=== PATIENT | male | born 1945 | race Caucasian/White ===

== ENCOUNTER 2019-06-30 20:06 | Emergency (ER) | payer MEDICARE ==
[~2019-06-30] VITALS: Ht 172.7 cm; Wt 72.6 kg
--- NOTE | 2019-06-30 20:33 | ER.PDOC ---
General Chief Complaint: Requesting Medical Care Stated Complaint: WEAKNESS TRAVEL OUT OF US: No Time seen by MD: 20:33 Source: patient, family Exam Limitations: no limitations History of Present Illness Initial Comments 74 Y/O MALE PATIENT STATES THAT HE HAS OVERDONE IT THE LAST FEW DAYS, AND FEELS RUN DOWN. THINKS HIS BLOOD SUGAR MIGHT HAVE GOTTEN LOW, NOW FEELS FINE. NO CHEST PAIN, NO SOB, NO N/V/D, NO FEVER, NO ABD PAIN, NO CERVANTES, PATIENT HAS NO OTHER COMPLAINTS. STATES THAT HE HAD A NEAR SYNCOPE EPISODE X 2-3 WEEKS AGO WHILE DRIVING. PATIENT WAS NOT SEEN FOR THIS. PATIENT HAS NO COMPLAINTS NOW AND WANTS NO WORK UP. PATIENT LATER AGREED TO LABS AND ECG, REFUSED CT OF BRAIN. Timing/Duration: other Severity: mild Modifying Factors: improves with other Associated Symptoms: denies symptoms Past Medical History Medical History: cancer, coronary artery disease, cardiac problems, heart attack, hypertension Surgical History: cardiac cath, other Family History Significant Family History: no pertinent family hx Social History Smoking: non-smoker Alcohol Use: none Drug Use: none Reviewed Nursing Reviewed: Vital Signs, Abn. Noted, Nursing Assessment Review of Systems Constitutional: weakness EENTM: no symptoms reported Respiratory: no symptoms reported Cardiovascular: no symptoms reported Gastrointestinal: no symptoms reported Genitourinary: no symptoms reported Musculoskeletal: no symptoms reported Skin: no symptoms reported Psychiatric/Neurological: no symptoms reported Hematologic/Lymphatic: no symptoms reported Immunological/Allergic: no symptoms reported Physical Exam General Appearance: No Apparent Distress, WD/WN EENT: eyes nml inspection, nml ENT inspection, pharynx nml Neck: Non-Tender, Full Range of Motion, Supple, Normal Inspection Respiratory: chest non-tender, lungs clear, normal breath sounds, no respiratory distress, no accessory muscle use CVS: reg rate & rhythm, no murmur, no gallop, pulses nml, nml capillary refill Gastrointestinal: Normal Bowel Sounds, No Organomegaly, No Pulsatile Mass, Non Tender Back: Normal Inspection Extremities: Normal Range of Motion, Non-Tender, Normal Inspection, No Pedal Edema Neurologic/Psychiatric: lock plater II-XII NML as Tested, No Motor/Sensory Deficits, Alert, Normal Mood/Affect, Oriented x 3 Skin: Normal Color Lymphatic: No Adenopathy Results/Orders Results/Orders Orders - PARISH BEJARANO DO Cbc With Auto Diff (06/30/19 20:47) Comprehensive Metabolic Panel (06/30/19 20:47) Troponin I (06/30/19 20:47) Creatine Kinase Mb (06/30/19 20:47) Creatine Kinase (06/30/19 20:47) Xr Chest 1v (06/30/19 20:47) Orthostatics On Arrival (06/30/19 20:47) Saline Lock (06/30/19 20:47) 0.9 % Sodium Chloride (Ns 1000ml) (06/30/19 20:47) 0.9 % Sodium Chloride (Ns 1000ml) (06/30/19 21:39) Vital Signs Date Time Temp Pulse Resp B/P (MAP) Pulse Ox O2 Delivery O2 Flow Rate FiO2 06/30/19 22:06 98.0 60 14 153/94 (113) 97 Room Air 06/30/19 21:57 98.0 60 14 97 06/30/19 21:57 98.0 60 14 Administered Medications Medications (Trade) Dose Ordered Sig/Sweta Route PRN Reason Start Time Stop Time Status Last Admin Dose Admin Sodium Chloride 1,000 ml @ 0 mls/hr Q0M STAT IV 06/30/19 20:47 06/30/19 20:50 DC 06/30/19 21:44 0 MLS/HR Laboratory Tests Test 06/30/19 20:57 White Blood Count 4.1 10^3/uL (4.5-11.0) L Red Blood Count 3.69 10^6/uL (4.50-5.90) L Hemoglobin 9.1 g/dL (13.9-16.3) L Hematocrit 28.9 % (37.0-53.0) L Mean Corpuscular Volume 78.3 fL (78-100) Mean Corpuscular Hemoglobin 24.7 pg (26-34) L Mean Corpuscular Hemoglobin Concent 31.5 g/dL (33-36.5) L Red Cell Distribution Width 17.1 % (11.5-14.5) H Platelet Count 328 10^3/uL (150-400) Mean Platelet Volume 9.8 fL (7.8-11.0) Neutrophils (%) (Auto) 57.6 % (41.0-85.0) Lymphocytes (%) (Auto) 24.5 % (24.0-44.0) Monocytes (%) (Auto) 8.5 % (5.0-12.0) Neutrophils # (Auto) 2.4 10^3/uL (1.8-7.7) Lymphocytes # (Auto) 1.01 10^3/uL1 (1.0-4.8) Monocytes # (Auto) 0.4 10^3/uL (0.3-0.8) Absolute Immature Granulocyte (auto 0.01 10^3 u/L (0-2) Absolute Eosinophils (auto) 0.4 10^3/uL (0.0-0.2) H Immature Granulocytes % 0.20 % (0.00-0.50) Eosinophils % 8.5 % (0.0-5.0) H Basophils % 0.7 % (0.0-0.2) H Basophils # 0.0 10^3/uL (0.0-0.1) Sodium Level 130 mmol/L (132-145) L Potassium Level 4.2 mmol/L (3.6-5.2) Chloride Level 94.0 mmol/L (96-109) L Carbon Dioxide Level 27.9 mmol/L (20.0-32) Anion Gap 12.3 Blood Urea Nitrogen 12 mg/dL (7-18) Creatinine 1.24 mg/dL (0.59-1.40) Estimated GFR () 69.1 (>/=60) Est GFR (CKD-EPI)(Non-Afr [place]) 57.1 (>/=60) BUN/Creatinine Ratio 9.0 Glucose Level 104 mg/dL (70-110) Calcium Level 8.6 mg/dL (8.4-10.5) Total Bilirubin 0.2 mg/dL (0.2-1.0) Aspartate Amino Transferase (AST) 23 U/L (0-35) Alanine Aminotransferase (ALT) 16 U/L (12-78) Alkaline Phosphatase 80 U/L (50-136) Total Creatine Kinase 229 U/L (39-308) Creatine Kinase MB 2.4 ng/mL (0.5-3.6) Troponin I < 0.02 ng/mL (0.00-0.05) Total Protein 7.6 g/dL (6.4-8.2) Albumin 3.8 g/dL (3.4-5.0) Globulin 3.8 Progress Progress AT INITIAL EXAM PATIENT REFUSED WORK UP, THEN AGREED TO LABS, ECG AND CXR. PATIENT REFUSED A CT BRAIN, OR SERIAL CARDIAC LABS, PATIENT DOES HAVE THE [place] TO UNDERSTAND. 2229--PATIENT STATES HE FEELS FINE AND WANTS TO GO HOME, LABS AND WORK UP DISCUSSED, ANEMIA AND DEHYDRATION DISCUSSED, PATIENT STATES HE WILL FOLLOW UP WITH HIS DR, WILL RETURN TO ED IF WORSE . EKG/XRAY/CT/US EKG: NSR EKG Comments: ECG--NSR-RATE-63, NO ACUT CHANGES. XRAY: chest XRAY Comments: CHEST --NEG STUDY. Course Vitals & review Data Vital Sign - Last 24 Hours 06/30/19 06/30/19 06/30/19 21:57 21:57 22:06 Temp 98.0 98.0 98.0 Pulse 60 60 60 Resp 14 14 14 B/P (MAP) 153/94 (113) Pulse Ox 97 97 O2 Delivery Room Air Laboratory Tests Test 06/30/19 20:57 White Blood Count 4.1 10^3/uL Red Blood Count 3.69 10^6/uL Hemoglobin 9.1 g/dL Hematocrit 28.9 % Mean Corpuscular Volume 78.3 fL Mean Corpuscular Hemoglobin 24.7 pg Mean Corpuscular Hemoglobin Concent 31.5 g/dL Red Cell Distribution Width 17.1 % Platelet Count 328 10^3/uL Mean Platelet Volume 9.8 fL Neutrophils (%) (Auto) 57.6 % Lymphocytes (%) (Auto) 24.5 % Monocytes (%) (Auto) 8.5 % Neutrophils # (Auto) 2.4 10^3/uL Lymphocytes # (Auto) 1.01 10^3/uL1 Monocytes # (Auto) 0.4 10^3/uL Absolute Immature Granulocyte (auto 0.01 10^3 u/L Absolute Eosinophils (auto) 0.4 10^3/uL Immature Granulocytes % 0.20 % Eosinophils % 8.5 % Basophils % 0.7 % Basophils # 0.0 10^3/uL Sodium Level 130 mmol/L Potassium Level 4.2 mmol/L Chloride Level 94.0 mmol/L Carbon Dioxide Level 27.9 mmol/L Anion Gap 12.3 Blood Urea Nitrogen 12 mg/dL Creatinine 1.24 mg/dL Estimated GFR () 69.1 Est GFR (CKD-EPI)(Non-Afr [place]) 57.1 BUN/Creatinine Ratio 9.0 Glucose Level 104 mg/dL Calcium Level 8.6 mg/dL Total Bilirubin 0.2 mg/dL Aspartate Amino Transf (AST/SGOT) 23 U/L Alanine Aminotransferase (ALT/SGPT) 16 U/L Alkaline Phosphatase 80 U/L Total Creatine Kinase 229 U/L Creatine Kinase MB 2.4 ng/mL Troponin I < 0.02 ng/mL Total Protein 7.6 g/dL Albumin 3.8 g/dL Globulin 3.8 Departure Time of Disposition: 22:25 Disposition: 01 HOME, SELF-CARE Impression: Primary Impression: Anemia Additional Impressions: Hyponatremia General weakness Condition: Stable Patient Instructions: Anemia, FAQs Referrals: BRYON ESCOBAR (PCP) PRIMARY CARE PROVIDER Additional Instructions: TO ED IF WORSE IN ANY WAY, FOLLOW UP WITH YOUR DR, DRINK PLENTY FLUIDS AND TAKE IT EASY. LABS TO PATIENT . Duration or Time Spent with Pa: 15 MIN Problem Qualifiers PARISH BEJARAON DO Jun 30, 2019 20:33
[2019-06-30] MEDS ORDERED: NS 1000ML 1,000 ML IV STA (20:47)
[2019-06-30 21:11] LABS: BASOPHIL % 0.7 % (0.0-0.2); EOSINOPHIL # 0.4 10^3/uL (0.0-0.2); EOSINOPHIL % 8.5 % (0.0-5.0); LYMPHOCYTES # 1.01 10^3/uL1 (1.0-4.8); LYMPHOCYTES % 24.5 % (24.0-44.0); MEAN CORP HGB 24.7 pg (26-34); MONOCYTES # 0.4 10^3/uL (0.3-0.8); MONOCYTES % 8.5 % (5.0-12.0); NEUTROPHIL # 2.4 10^3/uL (1.8-7.7); NEUTROPHILS % 57.6 % (41.0-85.0); PLATELET COUNT 328 10^3/uL (150-400); RED CELL DISTRIBUTION WIDTH 17.1 % (11.5-14.5)
[2019-06-30 21:33] LABS: ALANINE AMINOTRANSFERASE(ML) 16 U/L (12-78); ALKALINE PHOSPHATASE 80 U/L (50-136); ASPARTATE AMINO TRANSFERASE 23 U/L (0-35); CALCIUM 8.6 mg/dL (8.4-10.5); CARBON DIOXIDE 27.9 mmol/L (20.0-32); GLUCOSE 104 mg/dL (70-110)
[2019-06-30] MEDS ORDERED: NS 1000ML 1,000 ML ONE (21:39)
[2019-06-30 21:57] VITALS: BP 153/94
--- NOTE | 2019-06-30 22:03 | DIREP ---
PROCEDURE:CHEST 1 VIEW COMPARISON:None. INDICATIONS:WEAKNESS FINDINGS: LUNGS/PLEURA:No significant pulmonary parenchymal abnormalities. No effusions. VASCULATURE:Normal. Unremarkable pulmonary vasculature. CARDIAC:Normal heart size. Tortuosity of thoracic aorta. MEDIASTINUM:Normal. No visible mass or adenopathy. BONES:Normal. No fracture or visible bony lesion. OTHER:Negative. CONCLUSION:No acute cardiac or pulmonary disease. Dictated by: Earl Herrmann M.D. on 06/30/2019 at 10:01 PM
[2019-06-30 22:06] VITALS: BP 153/94
[2019-06-30 23:02] VITALS: BP 158/94
--- NOTE | 2019-07-01 07:55 | PCM.EKG ---
[facility] Test Date: 2019-06-30 Test Time: 20:05:47 Pat Name: KEIRA ERNST Department: Room: Gender: M Barber Apprentice: NIVIA : 1945 Requested By: PARISH BEJARANO Order Number: [id number] Reading MD: Measurements Intervals [place] Rate: 63 P: 52 MN: 245 QRS: -20 QRSD: 135 T: 85 QT: 490 QTc: 502 Interpretive Statements Sinus rhythm Prolonged MN interval Nonspecific intraventricular conduction delay No previous ECG available for comparison Please click the below link to view image of tracing.
== END 2019-06-30 23:00 | disposition home or self-care (01) ==
LOC: ER 20:06
DX: D64.9 Anemia, unspecified (principal); E87.1 Hypo-osmolality and hyponatremia; I10 Essential (primary) hypertension; I25.10 Atherosclerotic heart disease of native coronary artery without angina pectoris; I25.2 Old myocardial infarction
CPT/HCPCS: 36415; 71045; 80053; 82550; 82553; 84484; 85025; 99285; J7030; 93005